=== PATIENT | female | born 1965 | race Caucasian/White ===

== ENCOUNTER 2017-12-14 18:41 | Emergency (ER) | payer MEDICAID ==
[~2017-12-14] VITALS: Ht 162.6 cm; Wt 72.6 kg
[2017-12-14 18:59] VITALS: BP 132/79
--- NOTE | 2017-12-14 20:00 | NUR ---
PT AMBULATORY TO BED 9 W/ STEADY GAIT.
--- NOTE | 2017-12-14 20:10 | NUR ---
PT PRESENTS TO ED WITH C/O OF LUQ PAIN X 1 WEEK. PT DENIES N/V/D. LAST BM 12/14/17-REGULAR. ABDOMEN IS SOFT NON-TENDER WITH BOWEL SOUNDS HEARD X 4 QUADRANTS. PT PLACED IN GOWN AND PLACED IN BED, PENDING MD BHATTI.
--- NOTE | 2017-12-14 20:45 | NUR ---
LAB AT BEDSIDE.
[2017-12-14 20:53] LABS: BASOPHILS # (AUTO) 0.1 K/uL (0.00-0.22); BASOPHILS % (AUTO) 0.9 % (0.0-2.0); EOSINOPHILS # (AUTO) 0.1 K/uL (0-0.4); EOSINOPHILS % (AUTO) 1.6 % (0.0-4.0); HEMATOCRIT 40.4 % (36-48); HEMOGLOBIN 13.4 g/dL (12.0-16.0); LYMPHOCYTES # (AUTO) 3.3 K/uL (2.5-16.5); LYMPHOCYTES % (AUTO) 38.1 % (20.5-51.1); MEAN CORPUSCULAR HEMOGLOBIN 29 pg (27-31); MEAN CORPUSCULAR HGB CONC 33 g/dL (33-37); MEAN CORPUSCULAR VOLUME 88.6 fL (80-94); MONOCYTES # (AUTO) 0.5 K/uL (0.8-1.0); MONOCYTES % (AUTO) 5.5 % (1.7-9.3); NEUTROPHILS # (AUTO) 4.6 K/uL (1.8-7.7); NEUTROPHILS % (AUTO) 53.9 % (42.2-75.2); PLATELET COUNT (AUTO) 249 K/uL (140-450); RED BLOOD CELL COUNT(AUTO) 4.56 MIL/uL (4.20-5.40); RED CELL DISTRIBUTION WIDTH 13.1 % (11.6-13.7); WHITE BLOOD COUNT (AUTO) 8.6 K/uL (4.8-10.8)
[2017-12-14 21:00] LABS: CARBON DIOXIDE 29.1 mmol/L (21-32); CREATININE 1.1 mg/dL (0.6-1.3); POTASSIUM 4.1 mmol/L (3.5-5.1)
[2017-12-14 21:06] LABS: ALBUMIN 3.7 g/dL (3.4-5.0); TOTAL BILIRUBIN 0.2 mg/dL (0.0-1.0)
[2017-12-14 21:49] VITALS: BP 130/99
--- NOTE | 2017-12-14 21:50 | NUR ---
Patient discharged with v/s stable. Written and verbal after care instructions given and explained. Patient alert, oriented and verbalized understanding of instructions. Ambulatory with steady gait. All questions addressed prior to discharge. ID band removed. Patient advised to follow up with PMD. Rx of NORCO, NAPROXEN given. Patient educated on indication of medication including possible reaction and side effects. Opportunity to ask questions provided and answered.
== END 2017-12-14 21:50 | disposition home or self-care (01) ==
LOC: MED 18:41
DX: R07.89 Other chest pain (principal); Z90.49 Acquired absence of other specified parts of digestive tract
CPT/HCPCS: 36415; 71045; 80053; 83690; 85025; 93005; 99285

== ENCOUNTER 2017-12-30 18:12 | Emergency (ER) | payer MEDICAID ==
[~2017-12-30] VITALS: Ht 157.5 cm; Wt 68.1 kg
[2017-12-30 18:30] VITALS: BP 139/94
--- NOTE | 2017-12-30 18:35 | NUR ---
PT AMBULATES TO BED 6 WITH
--- NOTE | 2017-12-30 18:45 | NUR ---
52F BIB WITH C/O PAINFUL ITCHY RASH ON THE NECK, TRUNK, BL AXILLARY X 3 WKS; PT STS SHE DOES NOT KNOW WHAT CAUSED THE RASH; PT DENIES ANY SOB OR DIFFICULT BREATHING. NO ANGIOEDEMA NOTED. PT IS AOX4 TO PERSON, PLACE, TIME AND SITUATION. RR ARE EVEN AND UNLABORED. PATIENT CHANGED INTO GOWN. AWAITING ER MD BHATTI.
--- NOTE | 2017-12-30 18:49 | NUR ---
er md hunter by bedside examining pt
--- NOTE | 2017-12-30 18:56 | NUR ---
Note undone in EDM - 12/30/17 at 1856 by [email or web address] 52 YO F BIB WITH C/O RASH ON THE NECK, TRUNK, BL AXILLARY X 3 WKS WITH PAIN 10/10. DENIES N/V/D/FEVER AT THIS TIME. AAOX4, GCS 15, CMS INTACT, RR EVEN AND UNLABORED, LUNGS BL CLEAR. ABD SOFT, NON-TENDER. ER MD NOTIFIED. PT NEEDS MET, SAFETY PRECAUTIONS IN PLACE. WILL CONTINUE TO MONITOR.L
[2017-12-30 19:15] VITALS: BP 132/80
--- NOTE | 2017-12-30 19:15 | NUR ---
Patient discharged with v/s stable. Written and verbal after care instructions given and explained. Patient alert, oriented and verbalized understanding of instructions. Ambulatory with steady gait. All questions addressed prior to discharge. ID band removed. Patient advised to follow up with PMD. Rx of Synalar, Prednisone, and Claritin given. Patient educated on indication of medication including possible reaction and side effects. Opportunity to ask questions provided and answered.
== END 2017-12-30 19:15 | disposition home or self-care (01) ==
LOC: MED 18:12
DX: L30.9 Dermatitis, unspecified (principal)
CPT/HCPCS: 99283

== ENCOUNTER 2018-08-11 19:07 | Emergency (ER) | payer MEDICAID ==
[~2018-08-11] VITALS: Ht 157.5 cm; Wt 70.8 kg
[2018-08-11 19:12] VITALS: BP 122/85
--- NOTE | 2018-08-11 19:22 | NUR ---
PT TRIAGED, SENT BACK TO LOBBY AWAITING BED AVAILABILITY
--- NOTE | 2018-08-11 19:54 | NUR ---
PT TAKEN TO BED 10.
--- NOTE | 2018-08-11 20:06 | NUR ---
52 Y/O F PRESENTED TO ED WITH C/O LOWER ABDOMINAL PAIN X5 DAYS. 8/10 PAIN, ACHING. DENIES HEMATURIA OR FLANK PAIN. RLQ TENDER TO TOUCH. BOWEL SOUNDS PRESENTS [id number]. - N/V/D. FAMILY AT BEDSIDE. ERMD NOTIFIED. WILL CONTINUE TO MONITOR.
--- NOTE | 2018-08-11 20:09 | NUR ---
Patient being evaluated by physician at bedside.
--- NOTE | 2018-08-11 20:10 | NUR ---
DR. GRACE BEDSIDE EVALUATING PT
[2018-08-11] MEDS ORDERED: MORPHINE SULFATE 4 MG/ML SYR IVP ONE (21:10)
[2018-08-11] MEDS ORDERED: ONDANSETRON 4 MG/2 ML VIAL IVP ONE (21:10)
--- NOTE | 2018-08-11 21:12 | NUR ---
PT TAKEN TO CT VIA WHEELCHAIR
--- NOTE | 2018-08-11 21:24 | NUR ---
PT RETURNED FROM CT VIA WHEELCHAIR
[2018-08-11 21:29] LABS: APPEARANCE,URINE CLEAR (CLEAR); BILIRUBIN,URINE NEGATIVE (NEGATIVE); BLOOD, URINE TRACE-I (NEGATIVE); COLOR,URINE YELLOW (YELLOW); LEUKOCYTE ESTERASE ,URINE TRACE (NEGATIVE); NITRITE, URINE NEGATIVE (NEGATIVE); UGLUCOSE NEGATIVE (NEGATIVE)
[2018-08-11 21:44] LABS: BASOPHILS % (AUTO) 0.4 % (0.0-2.0); EOSINOPHILS # (AUTO) 0.1 K/uL (0-0.4); EOSINOPHILS % (AUTO) 1.6 % (0.0-4.0); HEMATOCRIT 41.4 % (36-48); HEMOGLOBIN 13.8 g/dL (12.0-16.0); LYMPHOCYTES # (AUTO) 3.1 K/uL (2.5-16.5); LYMPHOCYTES % (AUTO) 41.5 % (20.5-51.1); MEAN CORPUSCULAR HEMOGLOBIN 29 pg (27-31); MEAN CORPUSCULAR HGB CONC 33 g/dL (33-37); MEAN CORPUSCULAR VOLUME 87.9 fL (80-94); MONOCYTES # (AUTO) 0.5 K/uL (0.8-1.0); MONOCYTES % (AUTO) 6.6 % (1.7-9.3); NEUTROPHILS # (AUTO) 3.7 K/uL (1.8-7.7); NEUTROPHILS % (AUTO) 49.9 % (42.2-75.2); PLATELET COUNT (AUTO) 239 K/uL (140-450); RED BLOOD CELL COUNT(AUTO) 4.71 MIL/uL (4.20-5.40); RED CELL DISTRIBUTION WIDTH 13.4 % (11.6-13.7); WHITE BLOOD COUNT (AUTO) 7.4 K/uL (4.8-10.8)
[2018-08-11 21:44] LABS: RBC,URINE 0-5 /HPF (0-5); WBC,URINE 20-60 /HPF (0-5)
[2018-08-11 21:52] LABS: CARBON DIOXIDE 30.1 mmol/L (21-32); CREATININE 0.8 mg/dL (0.6-1.3); POTASSIUM 4.1 mmol/L (3.5-5.1)
[2018-08-11 21:58] LABS: ALBUMIN 3.9 g/dL (3.4-5.0); TOTAL BILIRUBIN 0.3 mg/dL (0.0-1.0)
--- NOTE | 2018-08-11 22:20 | NUR ---
PT HAS HIVES TO L HAND AND FOREARM. DR. GRACE NOTIFIED.
[2018-08-11 22:44] VITALS: BP 123/73
--- NOTE | 2018-08-11 23:05 | NUR ---
Patient discharged with v/s stable. Written and verbal after care instructions given and explained. Patient alert, oriented and verbalized understanding of instructions. Ambulatory with steady gait. All questions addressed prior to discharge. ID band removed. Patient advised to follow up with PMD. Rx of Cipro, zofran, and norco given. Patient educated on indication of medication including possible reaction and side effects. Opportunity to ask questions provided and answered.
== END 2018-08-11 23:05 | disposition home or self-care (01) ==
LOC: MED 19:07
DX: N39.0 Urinary tract infection, site not specified (principal); Z90.49 Acquired absence of other specified parts of digestive tract
CPT/HCPCS: 36415; 74176; 80053; 81001; 81025; 85025; 87086; 96374; 96375; 99284; J2270; J2405

== ENCOUNTER 2022-03-16 18:25 | Emergency (ER) | payer MEDICAID, OTHER ==
[~2022-03-16] VITALS: Ht 154.9 cm; Wt 66.7 kg
[2022-03-16 19:09] VITALS: BP 157/72
--- NOTE | 2022-03-16 20:06 | NUR ---
THOMPSON WIGGINS examining patient.
[2022-03-16] MEDS ORDERED: CEPH-588 PO (21:00)
[2022-03-16] MEDS ORDERED: IBUP-2213 PO (21:00)
[2022-03-16] MEDS ORDERED: GABA300C PO (21:00)
[2022-03-16] MEDS ORDERED: ACYC-278 PO (21:00)
[2022-03-16 21:31] VITALS: BP 142/72
--- NOTE | 2022-03-16 21:31 | NUR ---
Patient discharged with v/s stable. Written and verbal after care instructions given and explained. Patient alert, oriented and verbalized understanding of instructions. Ambulatory with steady gait. All questions addressed prior to discharge. ID band removed. Patient advised to follow up with PMD. Rx of Acyclovir, Keflex and Neurontin given. Patient educated on indication of medication including possible reaction and side effects. Opportunity to ask questions provided and answered.
== END 2022-03-16 21:31 | disposition home or self-care (01) ==
LOC: MED 18:25
DX: B02.9 Zoster without complications (principal); L03.116 Cellulitis of left lower limb; R03.0 Elevated blood-pressure reading, without diagnosis of hypertension; Z79.1 Long term (current) use of non-steroidal anti-inflammatories (NSAID); Z79.899 Other long term (current) drug therapy; Z79.2 Long term (current) use of antibiotics
CPT/HCPCS: 99284

== ENCOUNTER 2023-04-20 19:03 | Emergency (ER) | payer OTHER ==
[~2023-04-20] VITALS: Ht 157.5 cm; Wt 68.0 kg
[~2023-04-20 19:03] MED LIST: ACYC-278 PO; CEPH-588 PO; GABA300C PO; IBUP-2213 PO
[2023-04-20 19:33] VITALS: BP 119/55; PULSE 72; RESP 16; TEMP 97.2; O2SAT 97
[2023-04-20 19:40] VITALS: O2SAT 97
[2023-04-21] MEDS ORDERED: ACET-2619 PO (00:10)
[2023-04-21] MEDS ORDERED: IBUP-1842 PO (00:10)
== END 2023-04-21 00:22 | disposition home or self-care (01) ==
LOC: MED 19:03
DX: S00.03XA Contusion of scalp, initial encounter (principal); Z79.899 Other long term (current) drug therapy; W01.198A Fall on same level from slipping, tripping and stumbling with subsequent striking against other object, initial encounter; Y92.89 Other specified places as the place of occurrence of the external cause; Y93.89 Activity, other specified; Y99.8 Other external cause status
CPT/HCPCS: 70450; 99284